=== PATIENT | female | born 1935 | race Caucasian/White ===

== ENCOUNTER 2017-02-13 18:06 | Inpatient (IN) | payer MEDICARE, MEDICAID ==
[~2017-02-13] VITALS: Ht 152.4 cm; Wt 60.2 kg
[~2017-02-13 18:06] MED LIST: ASPI-496 PO; ATEN25TA PO; BISA10SU65 PR; CHOL2000 PO; DOCU-131 PO; FLUT12AE INH; FURO-92 PO; FURO-93 PO; MAGN64TA9 PO; NYST15CR2 TP; POTA20TA14 PO; PRAV40TA2 PO; PRAV80TA2 PO; TIOT18CA INH; TRAM50TA2 PO
[2017-02-13] MEDS ORDERED: SODIUM CHLORIDE FLUSH 10ML SYR IVF ONE ×2 (18:30→19:30)
[2017-02-13 18:54] LABS: HEMATOCRIT 47.9 % (34.6-47.8); HEMOGLOBIN 16.5 g/dL (11.7-16.4); WHITE BLOOD COUNT 7.6 x10^3/uL (3.4-10)
[2017-02-13 19:06] LABS: ASPARTATE AMINO TRANSFERASE 49 U/L (15-37); BLOOD UREA NITROGEN 23 mg/dL (7-18)
[2017-02-13] MEDS ORDERED: SODIUM CHLORIDE 0.9% 1,000ML IVBOLUS ONE (19:30)
[2017-02-13] MEDS ORDERED: ONDANSETRON 2MG/ML, 2ML IVPush ONE (19:30)
[2017-02-13] MEDS ORDERED: MORPHINE SULFATE 4 MG/ML, 1ML IVPush PRN (19:30)
[2017-02-13] MEDS ORDERED: ONDANSETRON ODT 4 MG ONE (20:03)
[2017-02-13] MEDS ORDERED: MORPHINE SULFATE 4 MG/ML, 1ML ONE (20:04)
[2017-02-13] MEDS ORDERED: ONDANSETRON 2MG/ML, 2ML ONE (20:04)
[2017-02-13 21:23] LABS: PATH.CAST-FLAG NOT PRESENT; SPERM-FLAG NOT PRESENT; SRC-FLAG NOT PRESENT; XTAL-FLAG NOT PRESENT; YLC-FLAG NOT PRESENT
[2017-02-13] MEDS ORDERED: morphine SULFATE 10 MG/ML, 1ML IVPush PRN (23:00)
[2017-02-13] MEDS: ATORVASTATIN 20 MG TABLET PO SCH (23:00)
[2017-02-13 23:30] VITALS: BP 103/56
[2017-02-14] MEDS: ENOXAPARIN 40 MG/0.4 ML SQ SCH ×2 (00:37→23:00)
[2017-02-14] MEDS: FLOVENT INH SCH ×3 (00:38→21:30)
[2017-02-14] MEDS: POTASSIUM CHLORIDE 10 MEQ in SODIUM CHLORIDE 0.9% 1,000 ML IV SCH ×2 (00:38→11:09)
[2017-02-14 01:24] VITALS: BP 151/64
[2017-02-14 05:01] LABS: HEMATOCRIT 42.4 % (34.6-47.8); HEMOGLOBIN 14.3 g/dL (11.7-16.4)
[2017-02-14 05:19] LABS: BLOOD UREA NITROGEN 21 mg/dL (7-18)
[2017-02-14 06:17] VITALS: BP 103/56
[2017-02-14 06:47] VITALS: BP 139/77
[2017-02-14] MEDS ORDERED: IPRATROPIUM 0.5 MG/2.5 ML INHA IPPB SCH (07:00)
[2017-02-14] MEDS: ASPIRIN 81 MG TABLET EC PO SCH (09:00)
[2017-02-14] MEDS: IPRATROPIUM 0.5 MG/2.5 ML INHA NPPB SCH ×3 (10:21→18:49)
[2017-02-14] MEDS: ATENOLOL 25 MG TABLET PO SCH (10:34)
[2017-02-14] MEDS ORDERED: D5%-0.45NACL+KCL 20MEQ 1,000 ML IV SCH (13:00)
[2017-02-14 13:31] VITALS: BP 129/67
[2017-02-14] MEDS: ATORVASTATIN 20 MG TABLET PO SCH (21:30)
[2017-02-14 22:04] VITALS: BP 130/70
[2017-02-15] MEDS: IPRATROPIUM 0.5 MG/2.5 ML INHA NPPB SCH ×3 (01:50→15:53)
[2017-02-15 05:24] VITALS: BP 129/70
[2017-02-15] MEDS ORDERED: POTASSIUM CHLORIDE 20 MEQ in SODIUM CHLORIDE 0.45% 1,000 ML IV SCH (06:00)
[2017-02-15 07:01] VITALS: BP_SYST 98; BP_DIAS 4; BP_DIAS 40
[2017-02-15] MEDS: ATENOLOL 25 MG TABLET PO SCH (07:38)
[2017-02-15] MEDS: FLOVENT INH SCH (09:00)
[2017-02-15] MEDS: ASPIRIN 81 MG TABLET EC PO SCH (09:54)
[2017-02-15 14:26] VITALS: BP 135/59
== END 2017-02-15 18:13 | disposition home or self-care (01) | DRG 394 ==
LOC: ED 21:20 → EDIP 21:34 → 4WST 23:00
PROVIDERS: ADMIT Family Medicine; ATTEND Family Medicine
DX: K55.1 Chronic vascular disorders of intestine (principal); R17 Unspecified jaundice; I11.0 Hypertensive heart disease with heart failure; F03.90 Unspecified dementia, unspecified severity, without behavioral disturbance, psychotic disturbance, mood disturbance, and anxiety; I49.5 Sick sinus syndrome; I77.4 Celiac artery compression syndrome; I08.1 Rheumatic disorders of both mitral and tricuspid valves; J44.9 Chronic obstructive pulmonary disease, unspecified; Z86.73 Personal history of transient ischemic attack (TIA), and cerebral infarction without residual deficits; Z87.891 Personal history of nicotine dependence; Z95.0 Presence of cardiac pacemaker; Z88.0 Allergy status to penicillin; Z82.49 Family history of ischemic heart disease and other diseases of the circulatory system; Z82.5 Family history of asthma and other chronic lower respiratory diseases
CPT/HCPCS: 36415; 74174; 80048; 80053; 81001; 83605; 83690; 83735; 84100; 85025; 94640; 96361; 96374; 96375; J1650; J2405; J3480; J7644; J2270; J7030

== ENCOUNTER 2017-02-24 06:16 | Day surgery (SDC) | payer MEDICARE, MEDICAID ==
[~2017-02-24] VITALS: Ht 154.9 cm; Wt 56.9 kg
[2017-02-24 07:31] VITALS: BP 145/60
[2017-02-24] MEDS ORDERED: LACTATED RINGERS 1,000 ML IV SCH (07:41)
[2017-02-24] MEDS ORDERED: PROPOFOL 10 MG/ML, 20ML ONE (08:53)
[2017-02-24] MEDS ORDERED: PROPOFOL 10 MG/ML, 50ML ONE (08:53)
[2017-02-24] MEDS ORDERED: ONDANSETRON 2MG/ML, 2ML IVPush PRN (09:30)
== END 2017-02-24 10:30 ==
LOC: OUT 06:16
PROVIDERS: ATTEND Specialist
DX: K63.5 Polyp of colon (principal); E78.5 Hyperlipidemia, unspecified; J44.9 Chronic obstructive pulmonary disease, unspecified; I10 Essential (primary) hypertension; Z98.890 Other specified postprocedural states; Z98.51 Tubal ligation status; Z95.0 Presence of cardiac pacemaker; Z90.49 Acquired absence of other specified parts of digestive tract
CPT/HCPCS: 45380; 88305; 93005; J2704; J7120

== ENCOUNTER → 2017-06-22 | Outpatient (CLI) | payer MEDICARE, MEDICAID ==
[~2017-06-22] MED LIST changes: +DICY10CA3 PO
[2017-06-22 12:46] LABS: ALANINE AMINOTRANSFERASE 42 U/L (12-78); ALBUMIN 3.3 g/dL (3.4-5.0); ANION GAP 8 mmol/L (5-15); CALCIUM 8.8 mg/dL (8.5-10.1); CHLORIDE 108 mmol/L (98-107)
[2017-06-22 12:51] LABS: ALKALINE PHOSPHATASE 133 U/L (45-117); BILIRUBIN,TOTAL 0.7 mg/dL (0.2-1.0); CHOL/HDL RATIO 2.7; CHOLESTEROL, TOTAL 151 mg/dL (140-239); CREATININE 1.06 mg/dL (0.55-1.02); HDL CHOL % 37 % (28-40); HDL CHOLESTEROL (DIRECT) 56 mg/dL (40-60); LDL CHOLESTEROL,CALCULATED 79 mg/dL (54-169); LDL/HDL RATIO 1.4 (0.5-3.0); TOTAL PROTEIN 6.8 g/dL (6.4-8.2); TRIGLYCERIDES 80 mg/dL (50-200); VLDL CHOLESTEROL 16 mg/dL (0-25)
== END | disposition home or self-care (01) ==
LOC: CFH 10:28
PROVIDERS: ATTEND Nurse Practitioner Family
DX: I35.0 Nonrheumatic aortic (valve) stenosis (principal); I10 Essential (primary) hypertension; J44.9 Chronic obstructive pulmonary disease, unspecified; Z86.73 Personal history of transient ischemic attack (TIA), and cerebral infarction without residual deficits; Z95.0 Presence of cardiac pacemaker
CPT/HCPCS: 36415; 80053; 80061; 93306

== ENCOUNTER 2017-06-28 15:21 | Inpatient (IN) | payer MEDICARE, MEDICAID ==
[~2017-06-28] VITALS: Ht 149.9 cm; Wt 58.2 kg
[2017-06-28] MEDS ORDERED: ASPIRIN 81 MG TABLET CHEW ONE (15:46)
[2017-06-28 15:55] LABS: BASOPHILS # (AUTO) 0.03 x10^3/uL (0-0.1); BASOPHILS % (AUTO) 1 % (0-1); EOSINOPHILS # (AUTO) 0.17 x10^3/uL (0-0.4); EOSINOPHILS % (AUTO) 3 % (1-7); LYMPHOCYTES # (AUTO) 1.02 x10^3/uL (1-3.4); LYMPHOCYTES % (AUTO) 17 % (22-44); MD NO; MEAN CORPUSCULAR HGB CONC 33.6 g/dL (32.4-35.8); MEAN CORPUSCULAR VOLUME 95.3 fL (80-100); MONOCYTES # (AUTO) 0.44 x10^3/uL (0.2-0.8); MONOCYTES % (AUTO) 7 % (2-9); NEUTROPHILS # (AUTO) 4.34 x10^3/uL (1.8-6.8); NEUTROPHILS % (AUTO) 72 % (42-75); PLATELET COUNT 143 x10^3/uL (130-400); RED BLOOD COUNT 4.25 x10^6/uL (3.82-5.3); RED CELL DISTRIBUTION WIDTH 13.6 % (9.6-15.2)
[2017-06-28] MEDS ORDERED: CLOP75TA PO (15:57)
[2017-06-28] MEDS ORDERED: PRESSURE VISION (15:57)
[2017-06-28] MEDS ORDERED: LACT1CAP5 PO (15:57)
[2017-06-28] MEDS ORDERED: MIRT15TA4 PO (15:57)
[2017-06-28] MEDS ORDERED: GLUC1CAP48 PO (15:57)
[2017-06-28] MEDS ORDERED: ALBU18HF INH (15:57)
[2017-06-28] MEDS ORDERED: VIT1TABL34 PO (15:57)
[2017-06-28] MEDS ORDERED: FLUT50DI INH (15:57)
[2017-06-28] MEDS ORDERED: PRAV40TA2 PO (15:57)
[2017-06-28] MEDS ORDERED: SODIUM CHLORIDE FLUSH 10ML SYR IVF ONE (16:00)
[2017-06-28] MEDS ORDERED: ASPIRIN 81 MG TABLET CHEW PO ONE (16:00)
[2017-06-28 16:06] LABS: INTERNATIONAL NORMALIZED RATIO 1.17 (0.93-1.1); PROTHROMBIN TIME 12.1 Seconds (9.6-11.5)
[2017-06-28 16:11] LABS: ALANINE AMINOTRANSFERASE 42 U/L (12-78); ALBUMIN 3.4 g/dL (3.4-5.0); ANION GAP 11 mmol/L (5-15); CALCIUM 8.5 mg/dL (8.5-10.1); CHLORIDE 110 mmol/L (98-107); CREATININE 1.24 mg/dL (0.55-1.02)
[2017-06-28 16:16] LABS: ALKALINE PHOSPHATASE 135 U/L (45-117); TOTAL PROTEIN 6.8 g/dL (6.4-8.2); TROPONIN I 0.016 ng/mL (0.000-0.045)
[2017-06-28] MEDS ORDERED: ONDANSETRON 2MG/ML, 2ML IV PRN (17:30)
[2017-06-28] MEDS ORDERED: morphine SULFATE 10 MG/ML, 1ML IV PRN (17:30)
[2017-06-28] MEDS ORDERED: ACETAMINOPHEN 650 MG/20.3 ML UDC PO PRN (17:30)
[2017-06-28] MEDS ORDERED: FUROSEMIDE 20 MG/2 ML IVPush SCH (17:30)
[2017-06-28] MEDS ORDERED: NITROGLYCERIN 0.4 MG BOTTLE (25 TABS) SL PRN (17:30)
[2017-06-28] MEDS ORDERED: ALBUTEROL SULFATE 2.5 MG/3 ML NPPB PRN (17:30)
[2017-06-28 19:00] VITALS: BP 115/69
[2017-06-28] MEDS: ALBUTEROL/IPRATROPIUM 2.5MG/0.5MG, 3 ML IPPB PRN (20:21)
[2017-06-28] MEDS: PRAVASTATIN 20 MG TABLET PO SCH (21:18)
[2017-06-28] MEDS: SODIUM CHLORIDE FLUSH 10ML SYR IVF SCH (21:19)
[2017-06-29 00:30] VITALS: BP 150/64
[2017-06-29 00:48] LABS: TROPONIN I 0.043 ng/mL (0.000-0.045)
[2017-06-29] MEDS ORDERED: ATENOLOL 25 MG TABLET PO SCH (06:00)
[2017-06-29 06:17] VITALS: BP 146/69
[2017-06-29 06:19] LABS: ANION GAP 7 mmol/L (5-15); CALCIUM 8.2 mg/dL (8.5-10.1); CHLORIDE 107 mmol/L (98-107); CHOLESTEROL, TOTAL 107 mg/dL (140-239); CREATININE 1.23 mg/dL (0.55-1.02); TRIGLYCERIDES 45 mg/dL (50-200); VLDL CHOLESTEROL 9 mg/dL (0-25)
[2017-06-29] MEDS: ATENOLOL 50 MG TABLET PO SCH (06:20)
[2017-06-29] MEDS: ASPIRIN 81 MG TABLET EC PO SCH (06:21)
[2017-06-29 06:52] LABS: CHOL/HDL RATIO 2.2; HDL CHOL % 46 % (28-40); HDL CHOLESTEROL (DIRECT) 49 mg/dL (40-60); LDL CHOLESTEROL,CALCULATED 49 mg/dL (54-169)
[2017-06-29 08:23] VITALS: BP 112/60
[2017-06-29] MEDS: CLOPIDOGREL 75 MG TABLET PO SCH (09:44)
[2017-06-29] MEDS: DOCUSATE 100 MG CAPSULE PO SCH (09:44)
[2017-06-29] MEDS: FAMOTIDINE 20 MG TABLET PO SCH (09:44)
[2017-06-29] MEDS: SODIUM CHLORIDE FLUSH 10ML SYR IVF SCH ×2 (09:48→20:35)
[2017-06-29] MEDS ORDERED: REGADENOSON 0.4 MG/5 ML SYRINGE ONE (11:02)
[2017-06-29] MEDS ORDERED: AMINOPHYLLINE 25 MG/ML, 10ML ONE (11:53)
[2017-06-29 14:30] VITALS: BP 101/63
[2017-06-29] MEDS: FUROSEMIDE 20 MG/2 ML IV SCH (14:33)
[2017-06-29 19:36] VITALS: BP 130/59
[2017-06-29] MEDS: ALBUTEROL/IPRATROPIUM 2.5MG/0.5MG, 3 ML IPPB PRN (20:12)
[2017-06-29] MEDS: PRAVASTATIN 20 MG TABLET PO SCH (20:36)
[2017-06-29] MEDS ORDERED: MIRTAZAPINE 15 MG TABLET PO SCH (21:00)
[2017-06-30 01:12] VITALS: BP 144/69
[2017-06-30 04:56] VITALS: BP 121/68
[2017-06-30] MEDS: ASPIRIN 81 MG TABLET EC PO SCH (05:00)
[2017-06-30] MEDS: ATENOLOL 50 MG TABLET PO SCH (05:00)
[2017-06-30 07:33] LABS: ANION GAP 10 mmol/L (5-15); CALCIUM 8.1 mg/dL (8.5-10.1); CHLORIDE 103 mmol/L (98-107); CREATININE 1.22 mg/dL (0.55-1.02)
[2017-06-30 08:22] VITALS: BP 142/70
[2017-06-30] MEDS: FUROSEMIDE 20 MG/2 ML IV SCH (09:01)
[2017-06-30] MEDS: CLOPIDOGREL 75 MG TABLET PO SCH (09:01)
[2017-06-30] MEDS: SODIUM CHLORIDE FLUSH 10ML SYR IVF SCH (09:01)
[2017-06-30] MEDS: FAMOTIDINE 20 MG TABLET PO SCH (09:01)
[2017-06-30] MEDS: DOCUSATE 100 MG CAPSULE PO SCH (09:01)
[2017-06-30] MEDS ORDERED: FURO20TA3 PO (13:11)
[2017-06-30] MEDS ORDERED: POTA20TA89 PO (13:11)
[2017-06-30 14:37] VITALS: BP 144/73
== END 2017-06-30 16:58 | disposition home or self-care (01) | DRG 682 ==
LOC: ED 16:12 → EDIP 16:13 → ED 16:38 → 5SO 17:14
PROVIDERS: ADMIT Family Medicine; ATTEND Family Medicine
DX: N17.9 Acute kidney failure, unspecified (principal); I50.33 Acute on chronic diastolic (congestive) heart failure; I24.8 Other forms of acute ischemic heart disease; F03.90 Unspecified dementia, unspecified severity, without behavioral disturbance, psychotic disturbance, mood disturbance, and anxiety; J44.9 Chronic obstructive pulmonary disease, unspecified; I11.0 Hypertensive heart disease with heart failure; E78.00 Pure hypercholesterolemia, unspecified; E78.5 Hyperlipidemia, unspecified; I35.0 Nonrheumatic aortic (valve) stenosis; Z86.73 Personal history of transient ischemic attack (TIA), and cerebral infarction without residual deficits; Z79.899 Other long term (current) drug therapy; Z87.891 Personal history of nicotine dependence; Z88.0 Allergy status to penicillin; Z90.710 Acquired absence of both cervix and uterus; Z95.0 Presence of cardiac pacemaker; Z90.49 Acquired absence of other specified parts of digestive tract; Z82.49 Family history of ischemic heart disease and other diseases of the circulatory system; Z82.5 Family history of asthma and other chronic lower respiratory diseases
CPT/HCPCS: 36415; 71045; 78452; 80048; 80053; 80061; 83880; 84484; 85025; 85610; 85730; 93005; 93017; 99285; J2785; J7620; A9502; C9898; J0280; J1940